=== PATIENT | male | born 1970 | race Caucasian/White ===

== ENCOUNTER 2024-11-29 08:52 | Emergency (ER) | payer OTHER ==
[~2024-11-29] VITALS: Ht 177.8 cm; Wt 110.2 kg
[2024-11-29 08:52] VITALS: TEMP 97.8
[2024-11-29 09:43] LABS: BASOPHILS % 0.5 % (0.0-1.0); EOSINOPHILS % 3.5 % (0.0-6.0); LYMPHOCYTES % 20.6 % (18.0-39.1); MONOCYTES % 7.6 % (4.4-11.3); NEUTROPHILS % 67.3 % (38.7-80.0); RED CELL DISTRIBUTION WIDTH 13.7 % (11.7-14.4)
[2024-11-29 10:00] LABS: INR 0.93
[2024-11-29 10:14] LABS: EST GLOMERULAR FILTRATION RATE 99 ML/MIN (>=60)
[2024-11-29 10:30] VITALS: PULSE 82; RESP 16
[2024-11-29] MEDS: SODIUM CHLORIDE 0.9% 1000ML 1,000 ML IV STA (10:42)
[2024-11-29] MEDS: KETOROLAC TROMETHAMINE 30 MG/ML VIAL IV STA (10:43)
[2024-11-29 13:32] VITALS: BP 122/74; PULSE 76; RESP 16; O2SAT 98
== END 2024-11-29 13:25 | disposition home or self-care (01) ==
LOC: ER 08:59
DX: R20.0 Anesthesia of skin (principal); I95.9 Hypotension, unspecified; I50.9 Heart failure, unspecified; N28.9 Disorder of kidney and ureter, unspecified; R53.1 Weakness; I10 Essential (primary) hypertension
CPT/HCPCS: 36415; 71045; 80053; 83735; 84484; 85025; 85610; 85730; 93005; 99284; J1885; J7030